=== PATIENT | female | born 1965 | race Asian ===

== ENCOUNTER 2023-12-22 14:12 | Outpatient (AMB) | payer MEDICAID, SELFPAY ==
[2023-12-22 14:22] VITALS: BP 150/74; PULSE 77; RESP 18; TEMP 36.6; O2SAT 98; BMI 25.6
--- NOTE | 2023-12-22 14:22 | PD.ORTHCLVIS ---
Vital signs 12/22/23 14:22 Height 1.5 m Height Method Stated Weight 57.663 kg Weight Measurement Method Standing Scale BMI 25.6 BP 150/74 H Blood Pressure Source Automatic Cuff Blood Pressure Location Right Upper Arm Position Sitting Respiration 18 Pulse 77 Pulse Source Monitor Temp 97.9 F Temp Source Temporal Artery Scan Pulse Oximetry (%) 98 Oxygen Delivery Method Room Air Med/Allergies Allergies & Medications Allergies No Known Allergies Allergy (Verified 12/22/23 14:22) Medication Reconciliation meloxicam 7.5 mg tablet 7.5 mg PO QDAY #20 tabs 01/15/23 [Rx Confirmed 12/22/23] ascorbate calcium (vitamin C) 500 mg tablet 500 mg PO QDAY 09/26/23 [History Confirmed 12/22/23] atorvastatin 10 mg tablet 10 mg PO QDAY 09/26/23 [History Confirmed 12/22/23] cetirizine 10 mg tablet 10 mg PO QDAY PRN 09/26/23 [History Confirmed 12/22/23] levothyroxine 25 mcg capsule 25 mcg PO QDAY 09/26/23 [History Confirmed 12/22/23] rcwqrpqn-[id number]-okcck acid 0.4 mg-lycopene 300 mcg-lutein 250 mcg tablet (Centrum Silver) 1 tab PO QDAY 09/26/23 [History Confirmed 12/22/23] pantoprazole 40 mg tablet,delayed release 40 mg PO QDAY 09/26/23 [History Confirmed 12/22/23] sertraline 25 mg tablet 25 mg PO QDAY 09/26/23 [History Confirmed 12/22/23] valsartan 80 mg tablet 80 mg PO QDAY 09/26/23 [History Confirmed 12/22/23] vitamin B12 500 mcg-folic acid 400 mcg tablet 1 tab PO QDAY 09/26/23 [History Confirmed 12/22/23] meloxicam 7.5 mg tablet 7.5 mg PO QDAY #45 tabs 10/10/23 [Rx Confirmed 12/22/23] Subjective Visit Visit for: follow up visit, knee and injections Immunization / Flu Flu Vaccine in the Last 12 Months: No Flu Vaccine Exclusion Criteria: No Exclusion Criteria History of Present Illness Chief complaint: 3 MONTH FOLLOW UP KNEE INJECTION Patient is a 58-year-old female with left knee pain has been ongoing for 7 months. She tried significant physical therapy and anti-inflammatories including meloxicam. The pain is on the medial aspect of her knee. She has an MRI which demonstrates a posterior horn medial meniscus tear. The pain is limiting her. 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 Exam Exam Patient is in no acute distress and is cooperative with the examination today. Breathing is nonlabored. Patient has a normal mood and affect. Bilateral extremities were evaluated and demonstrates sensation intact to light touch. Palpable pedal pulses are present. No significant edema is present. Bilateral hips were examined. The patient has no pain with log roll of the hips. Internal rotation to 30 degrees and external rotation to 30 degrees is painless. Negative FADIR. Right knee was examined today. The right knee is in reasonable alignment. Range of motion from 0-120 degrees. Knee is stable to varus and valgus as well as AP translation with <5mm. Patient has a negative McMurrays. There is no pain with patellofemoral compression and no crepitus noted. The knee is nontender to palpation. Left knee was examined today. The left knee is in [varus] alignment. Range of motion from [0-115] degrees. Knee is stable to varus and valgus as well as AP translation with <5mm. Patient has a [negative] McMurrays. There is [no] pain with patellofemoral compression and [no] crepitus noted. The knee is [tender] to palpation [medially]. X-rays from [facility] were reviewed by me today. This demonstrates a posterior horn medial meniscus tear. It is horizontal X-rays demonstrate complete open further ration of the medial joint space. There is nlan-bu-jtmi arthritis Assessment and Plan Problem List (1) Arthritis of knee, left: Status: Acute Plan: Patient is a 58-year-old Female with left knee pain. This been ongoing for several months. She actually has severe arthritis. We discussed nonoperative and operative options. She would like a cortisone injection today. Recommend knee cortisone injection as patient would like to proceed with conservative treatment at this time. The risks and benefits of the procedure were reviewed with the patient and patient gave verbal consent to continue with the procedure. Procedure: performed by Dr. Astudillo Using sterile technique the left knee was thoroughly prepped with alcohol, and approximately 1 cc of Kenalog 40 mg/mL and 4 cc of 1% lidocaine was injected without resistance into the medial tibial femoral joint space. The patient tolerated the procedure. (2) Acute meniscal tear of knee: Status: Acute Office Procedures GNS Level of Care Nursing/Assessment Patient Status: Established Patient Nursing Assessment/Reassesment: Medication Reconciliation, Update PMH in EMR and Vital Signs Coordination of Care: Complex Care and Chronic Disease 1-5, Education Complex Pt/Fam, Consent,records obtained, informed consent and Staff clarify orders Established Patient Charge Established Patient Point Assignment: 90 Established Patient Point Charge: EP Level 3 (80-115) Past Medical History Past Medical History Have you ever been diagnosed with any of the following: Respiratory Problems Smoking: No Smoking Exposure: No
== END 2023-12-22 14:51 | disposition home or self-care (01) ==
LOC: HODSRG 14:12
PROVIDERS: PCP Physician Assistant; Referring Provider Physician Assistant; Supervising Provider Orthopaedic Surgery Adult Reconstructive Orthopaedic Surgery; Visit Provider Orthopaedic Surgery Adult Reconstructive Orthopaedic Surgery
DX: M17.12 Unilateral primary osteoarthritis, left knee (principal); M25.562 Pain in left knee; S83.209D Unspecified tear of unspecified meniscus, current injury, unspecified knee, subsequent encounter; X58.XXXD Exposure to other specified factors, subsequent encounter
CPT/HCPCS: 20610; 99213; G0463

== ENCOUNTER 2024-01-11 08:04 | Outpatient (AMB) | payer MEDICAID, SELFPAY ==
--- NOTE | 2024-01-11 08:21 | ORTHONT_ITS ---
Med/Allergies Allergies & Medications Allergies No Known Allergies Allergy (Verified 12/22/23 14:22) Subjective Visit Visit for: follow up visit, knee and injections Immunization / Flu Flu Vaccine in the Last 12 Months: No Flu Vaccine Exclusion Criteria: No Exclusion Criteria History of Present Illness Chief complaint: 3 MONTH FOLLOW UP KNEE INJECTION Patient is a 58-year-old female with left knee pain has been ongoing for 7 months. She tried significant physical therapy and anti-inflammatories including meloxicam. The pain is on the medial aspect of her knee. She has an MRI which demonstrates a posterior horn medial meniscus tear. The pain is limiting her. 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 Exam Exam Patient is in no acute distress and is cooperative with the examination today. Breathing is nonlabored. Patient has a normal mood and affect. Bilateral extremities were evaluated and demonstrates sensation intact to light touch. Palpable pedal pulses are present. No significant edema is present. Bilateral hips were examined. The patient has no pain with log roll of the hips. Internal rotation to 30 degrees and external rotation to 30 degrees is painless. Negative FADIR. Right knee was examined today. The right knee is in reasonable alignment. Range of motion from 0-120 degrees. Knee is stable to varus and valgus as well as AP translation with <5mm. Patient has a negative McMurrays. There is no pain with patellofemoral compression and no crepitus noted. The knee is nontender to palpation. Left knee was examined today. The left knee is in [varus] alignment. Range of motion from [0-115] degrees. Knee is stable to varus and valgus as well as AP translation with <5mm. Patient has a [negative] McMurrays. There is [no] pain with patellofemoral compression and [no] crepitus noted. The knee is [tender] to palpation [medially]. [facility] from [facility] were reviewed by me today. This demonstrates a posterior horn medial meniscus tear. It is horizontal X-rays demonstrate complete open further ration of the medial joint space. There is fsku-yo-jnuo arthritis Assessment and Plan Problem List (1) Arthritis of knee, left: Status: Acute Plan: Patient is a 58-year-old Female with left knee pain. The patient is failed conservative treatment we thus discussed total knee replacement is a reasonable option. We tried physical therapy, anti-inflammatories, and injections Recommend knee cortisone injection as patient would like to proceed with conservative treatment at this time. The risks and benefits of the procedure were reviewed with the patient and patient gave verbal consent to continue with the procedure. Procedure: performed by Dr. Astudillo Using sterile technique the left knee was thoroughly prepped with alcohol, and approximately 1 cc of Kenalog 40 mg/mL and 4 cc of 1% lidocaine was injected without resistance into the medial tibial femoral joint space. The patient tolerated the procedure. (2) Acute meniscal tear of knee: Status: Acute Past Medical History Past Medical History Have you ever been diagnosed with any of the following: Respiratory Problems Smoking: No Smoking Exposure: No
[2024-01-11 08:30] VITALS: BP 166/96; PULSE 70; RESP 18; TEMP 36.5
--- NOTE | 2024-02-21 10:00 | PD.ORTHCLVIS ---
Vital signs 01/11/24 08:30 Height 1.5 m Height Method Stated Weight 128 kg Weight Measurement Method Standing Scale BP 166/96 H Blood Pressure Source Automatic Cuff Blood Pressure Location Right Upper Arm Position Sitting Respiration 18 Pulse 70 Pulse Source Monitor Temp 97.7 F Temp Source Temporal Artery Scan Med/Allergies Allergies & Medications Allergies No Known Allergies Allergy (Verified 02/06/24 14:48) Assessment and Plan Problem List (1) Arthritis of knee, left: Status: Acute (2) Acute meniscal tear of knee: Status: Acute Office Procedures GNS Level of Care Nursing/Assessment Patient Status: Established Patient Nursing Assessment/Reassesment: Medication Reconciliation, Update PMH in EMR and Vital Signs Coordination of Care: Complex Care and Chronic Disease 1-5, Education Complex Pt/Fam, Consent,records obtained, informed consent, Results/Orders obtained and Staff clarify orders Established Patient Charge Established Patient Point Assignment: 95 Established Patient Point Charge: EP Level 3 (80-115) Surgical Proc/IM SQ injection Major Surgical Procedure: Yes Questionairres Past Medical History Past Medical History Have you ever been diagnosed with any of the following: Neurological Problems Seizures: No Cardiology Problems Hypercholesterolemia: Yes Congestive Heart Failure: No Hypertension: Yes Respiratory Problems Chronic Obstructive Pulmonary Disease (COPD): No Smoking: No Smoking Exposure: No Stomache/Intestinal Problems Hepatitis: No Ulcerative Colitis: Yes Genital/Urinary Problems Renal Disease: No Reproductive Problems Previous Pregnancies: Yes Musculoskeletal Problems Arthritis: Yes Carpal Tunnel Syndrome: Yes (bilateral) Endocrine Problems Diabetes Mellitus Type 1: No Diabetes Mellitus Type 2: No Hypothyroidism: Yes Blood Problems Clotting Problems: Yes (Platelets clump) Psychologic Problems Anxiety: Yes Other Problems Hospitalization: Yes (ulcer) Shingles: No Blood Transfusions: No Blood Transfusion Reaction: No Anesthesia Reactions: No Chicken Pox: Yes Measles: Yes Mumps: Yes Cancer: No Subjective Review of Systems Review of Systems: All systems negative unless otherwise noted in HPI.
== END 2024-01-11 08:25 | disposition home or self-care (01) ==
LOC: HODSRG 08:04
PROVIDERS: PCP Physician Assistant; Referring Provider Physician Assistant; Supervising Provider Orthopaedic Surgery Adult Reconstructive Orthopaedic Surgery; Visit Provider Orthopaedic Surgery Adult Reconstructive Orthopaedic Surgery
DX: M17.12 Unilateral primary osteoarthritis, left knee (principal); M25.562 Pain in left knee; S83.209A Unspecified tear of unspecified meniscus, current injury, unspecified knee, initial encounter; X58.XXXA Exposure to other specified factors, initial encounter
CPT/HCPCS: 20610; 99213; G0463

== ENCOUNTER 2024-01-23 15:48 | Observation (INO) | payer MEDICAID, SELFPAY ==
[2024-01-19 07:37] VITALS: BMI 26.0
--- NOTE | 2024-01-19 08:16 | EKG_ITS ---
[facility] Test Date: 2024-01-19 Pat Name: TODD DOHERTY Department: Room: - Gender: Female Home Theater Specialist: SHAYLA : 1965 Requested By: Mario Gray Order Number: [id number] Reading MD: Mario Gray Measurements Intervals [place] Rate: 69 P: 40 VA: 166 QRS: 67 QRSD: 84 T: 44 QT: 391 QTc: 420 Interpretive Statements SINUS RHYTHM No previous ECG available for comparison /store/S0/[id number]/[id number].pdf
[2024-01-19 08:54] LABS: Basophils % (Auto) 1 % (0-2.5); Eosinophils # (Auto) 0.2 Thou/mm3 (0.0-0.5); Eosinophils % (Auto) 5 % (0-10); Hematocrit 41.4 % (36.0-46.0); Hemoglobin 13.7 g/dL (12.0-16.0); Immature Granulocytes % (Auto) 0 % (0-0); Lymphocytes % (Auto) 26 % (10-50); Mean Corpuscular HGB Conc 33.1 g/dl (31.0-37.0); Mean Corpuscular Hemoglobin 30.4 pg (25.0-35.0); Mean Corpuscular Volume 92 fL (80-100); Monocytes # (Auto) 0.3 Thou/mm3 (0.0-0.8); Monocytes % (Auto) 8 % (0-12); Neutrophils # (Auto) 2.4 Thou/mm3 (1.8-7.7); Neutrophils % (Auto) 61 % (37-80); Nucleated Red Blood Cell % 0 /100 WBC (0); RDW Standard Deviation 40.8 fL (36.4-46.3); White Blood Count 3.9 Thou/mm3 (3.6-11.0)
[2024-01-19 09:01] LABS: Platelet Count 36 Thou/mm3 (140-440)
[2024-01-19 09:02] LABS: Partial Thromboplastin Time 27.4 Seconds (22.0-36.0); Prothrombin Time 10.8 Seconds (9.0-12.2)
[2024-01-19 09:11] LABS: Alanine Aminotransferase 27 U/L (10-49); Albumin, Serum 4.8 gm/dL (3.5-5.0); Alkaline Phosphatase 78 U/L (46-116); Anion Gap 5 (7-16); Aspartate Amino Transferase 26 U/L (0-34); BUN/Creatinine Ratio 17 Ratio (12-20); Bilirubin,Total 1.2 mg/dL (0.3-1.2); Blood Urea Nitrogen 12 mg/dL (9-23); Calcium 9.9 mg/dL (8.3-10.6); Calcium (Corrected) 9.9 mg/dL (8.5-10.1); Chloride 107 mMol/L (98-107); Creatinine (Component) 0.7 mg/dL (0.6-1.3); Estimated Creatinine Clearance 68.2 mL/min (>60); Globulin 2.4 gm/dL (2.3-3.5); Glucose 107 mg/dL (74-106); Osmolality,Calculated 280 (275-295); Sodium 141 mMol/L (136-145); Total Protein 7.2 gm/dL (5.7-8.2); eGFR > 60 See Note
[2024-01-19 09:48] LABS: Slide Review Platelets confirmed
--- NOTE | 2024-01-19 13:47 | SUR.PREOP ---
Dr Gray informed of platelets 36 and the note from primary Dr explaining why her platelets are low.
--- NOTE | 2024-01-19 15:02 | SUR.PREOP ---
Ok to proceed with surgery, Dr Gray stated Dr Astudillo is aware of platelets.
[2024-01-22] VITALS (17 sets, daily range): BP systolic 140–164; BP diastolic 76–100; PULSE 67–79; RESP 12–18; TEMP 36.1–36.6; O2SAT 92–100; BMI 25.4
[2024-01-22] MEDS: PREGABALIN 75 MG CAPSULE PO (10:03)
[2024-01-22] MEDS: ACETAMINOPHEN 325 MG TABLET 650 MG PO (10:03)
[2024-01-22] MEDS: MELOXICAM 7.5 MG TABLET PO (10:04)
[2024-01-22] MEDS: RINGERS LACTATED 1000 ML 1,000 ML 20 ML IV (10:05)
--- NOTE | 2024-01-22 11:36 | ESOP_ITS ---
Date of Procedure 01/22/24 Pre Op Diagnosis left knee osteoarthritis Post Op Diagnosis left knee osteoarthritis Procedure left total knee replacement Findings full thickness cartilage loss and osteophytes Procedure Description Indication: The patient is a 58 year old who has a long history of left knee pain. X-rays show degenerative arthritis involving the knee. Over the past several years the patient has had increasing pain, progressive limitation in function. He has failed conservative measures including activity modification, physical therapy, injections, anti-inflammatories, and assistive devices. After a lengthy discussion of the risks and benefits, the patient presents now for total knee replacement. The nature and purpose of the total knee replacement, alternative method(s) of treatment, the material risks involved, and the possibility of complications were fully explained to the patient. The patient was told the most common risks and complications associated with a total knee replacement include, but are not limited to blood clots in the leg, fatal pulmonary embolism, dislocation of the prosthesis, intraoperative and postoperative fractures of the femur or tibia, infection, failure of the prosthesis or grafting materials, complications from anesthesia, reactions to blood transfusions, postoperative leg length inequality, instability of the knee replacement, nerve damage or injury, vascular injury, delayed wound healing, infections, other injury or even . In addition, there are risks associated with anesthesia given during this operation, temporary or permanent numbness on the skin lateral to the incision can be a complication unique to total knee surgery, and kneeling can be painful after knee replacement surgery. Also, the patient was told that after undergoing a total knee replacement there may still be pain or disability. We discussed with the patient that we will be using a robot-assisted technology. We discussed that there is a possibility of converting to manual instrumentation. The patient was informed that the success of this operation in part depends upon the mechanical devices which are going to be implanted and that these devices can fail or malfunction, and may need to be repaired or replaced and there are no guarantees as to the longevity of this device or its part and that it or its parts could fail prematurely. Finally, the patient was asked to follow completely and fully with all advice and recommended treatments, and that recovery and ultimate outcome are affected by their compliance with recommended treatment. Surgical technique: Patient was marked and consented in the pre-operative area. The patient was brought to the operating room and placed on the operating table in a supine position. Prior to positioning, a timeout procedure was performed between the surgeon, the anesthesiologist, and the nursing staff where the patient and the operative side were identified and confirmed. After adequate general anesthetic was obtained, the left lower extremity was prepped and draped in the usual sterile fashion. A weight based dose of Cefazolin were administered within 1 hour prior to incision. The robot was preregistered and calirated before the incision. The extremity was exsanguinated with an esmarch badge and tourniquet inflated to 250mmHg. A midline incision was made. A median parapatellar arthrotomy was made. The patella was subluxed laterally. A medial release was performed to expose the medial tibia. His femoral and tibial pins were placed through an intra incisional manner for both cases. Every effort was made to ensure that the distalmost aspect of the pin was hung in the second cortex. The arrays were then tightened several times to ensure that it was fixed for the remainder of the case. Both femoral and tibial checkpoints were then placed. We then went through the registration process of the bone. We then assessed the knee deformity and attempted to correct it. We also used the robot to aid in judging laxity in both extension and flexion. Final based on laxity and alignment we changed the preoperative assessment to obtain proper proper implant positioning and to correct deformity. Attention was then placed to the tibia. We made a tibial cut using the robot ensuring that both the MCL and the patella tendon were protected with retractors. We then went to the femur and made the posterior cut followed by the anterior cut and the anterior chamfer. The bone was then removed and we made a distal femur cut and a posterior chamfer cut. We verified all cuts. A trial reduction was performed with a size 1 femoral component and a size 1 keeled tibial component. The patella tracked centrally, and no lateral re tinacular release was necessary. The trial implants were removed. The arrays, pins, and checkpoints were all removed. We performed a verification that all pins were removed. The cut bone surfaces were lavaged. A size 1 left femoral component, a size 1 keeled tibial component were impacted into position. The knee was felt to be well balanced in the sagittal and coronal plane. The final 1x10 mm cruciate- substituting articular insert was impacted into the tibial tray. The knee was brought out to full extension, flexed up to 120 degrees. It was stable to varus and valgus stress and appropriately balanced in flexion and extension. The wounds were copiously irrigated following deflation of tourniquet. The medial retinaculum was reapproximated with #1 vicryl and quill. The subcutaneous tissues were closed with 0 and 2-0 interrupted Vicryl. The skin was closed with 3-0 Monofilament V loc suture. A sterile dressing was applied. The patient was transferred to a bed and brought to recovery in stable condition. The patient tolerated the procedure well. There were no intraoperative complications. Sponge and needle counts were correct times 2. As the attending surgeon, I attest I was present and performed the entire operation. Grafts/Implants Size 1 CR Femur Size 1 Tibia 10mm poly CS Anesthesia GETA and spinal Implants [place] Pathology / specimen None Pathology comment: none Estimated Blood Loss 150 Disposition same day Surgeon Benja Astudillo MD Surgical Staff Operation Date: 01/22/24 14:45 Case Staff Anesthesiologist: Randy Jj RN First Assistant: Angelique Bansal
--- NOTE | 2024-01-22 11:40 | XR_ITS ---
Examination: Knee, left , 2 views Technique: Knee AP, lateral, 2 views Date and time of exam: January 22, 2024 1202 hours INDICATIONS: Postop knee arthroplasty today FINDINGS: Moderate osteopenia Total left knee arthroplasty Satisfactory alignment No fracture IMPRESSION: Total left knee arthroplasty with satisfactory alignment
--- NOTE | 2024-01-22 12:02 | SUR.PHASEI ---
1202: Pt. AAOx4, vitals stable, breathing unlabored, no complaint of pain or nausea, dressing to left knee CDI, no active bleed noted, palpable bilateral dorsalis pedis pulses strong and regular, cap refill to bilateral feet less than 3 seconds, report received from Blane STEIN and Darion student RNA.
[2024-01-22] MEDS: fentaNYL CIT INJ 50 mCg/ML AMP 2ML 25 MCG IV ×4 (12:10→14:09)
[2024-01-22] MEDS: MORPHINE SULF INJ 10 MG/ML VIAL 3 MG IV ×2 (12:17→12:28)
--- NOTE | 2024-01-22 12:32 | SUR.PHASEII ---
1232:Report given to Tayler Adhikari RN to resume care. Pt. AAOx4, vitals stable, breathing unlabored, dressing CDI.
[2024-01-22] MEDS: CYCLObenzaPRINE 5 MG TABLET 10 MG PO (12:44)
[2024-01-22] MEDS: oxyCODONE HCL 5 MG IR TAB PO ×2 (13:04→19:29)
--- NOTE | 2024-01-22 13:17 | SUR.PHASEII ---
1317: Pt. AAOx4, vitals stable, breathing unlabored, no complaint of nausea, dressing to left knee CDI, no active bleed noted, report received from Tayler Adhikari RN.
--- NOTE | 2024-01-22 15:39 | SUR.PHASEII ---
Pt. staying the night due to her unable to lift leg, still having discomfort, and her unable to drive at night. MD Astudillo aware and approved.
[2024-01-22] MEDS: ACETAMINOPHEN IVPB 1,000 MG/100 ML VIAL 250 MG IV (15:55)
--- NOTE | 2024-01-22 16:19 | SUR.PHASEII ---
Report given to Larissa STEIN to resume care, Pt. AAOx4, vitals stable, breathing unlabored, complaint of pain 06/13, pt. states it's tolerable, dressing to left knee CDI, no active bleed noted, pt. able to wiggle bilateral toes, cap refill to bilateral toes less than 3 seconds, bilateral dorsalis pedis pulses strong and regular, pt. tolerated sips of soda well, and tolerated bites of crackers well, family made aware of pt. new room.
[2024-01-22] MEDS: ACETAMINOPHEN 500 MG TABLET 1000 MG PO (21:49)
[2024-01-23] VITALS (7 sets, daily range): BP systolic 132–157; BP diastolic 67–79; PULSE 69–87; RESP 16–18; TEMP 36.1–36.7; O2SAT 95–98
[2024-01-23] MEDS: oxyCODONE HCL 5 MG IR TAB 10 MG PO ×3 (00:04→15:42)
[2024-01-23] MEDS: ACETAMINOPHEN 500 MG TABLET 1000 MG PO ×3 (05:45→18:53)
[2024-01-23 06:34] LABS: Basophils % (Auto) 0 % (0-2.5); Eosinophils % (Auto) 0 % (0-10); Hematocrit 36.8 % (36.0-46.0); Hemoglobin 12.2 g/dL (12.0-16.0); Immature Granulocytes % (Auto) 0 % (0-0); Immature Granulocytes Auto 0.02 Thou/mm3 (0.00-0.00); Lymphocytes # (Auto) 1.2 Thou/mm3 (1.0-4.8); Lymphocytes % (Auto) 15 % (10-50); Mean Corpuscular HGB Conc 33.2 g/dl (31.0-37.0); Mean Corpuscular Hemoglobin 30.3 pg (25.0-35.0); Mean Corpuscular Volume 92 fL (80-100); Monocytes # (Auto) 0.8 Thou/mm3 (0.0-0.8); Monocytes % (Auto) 10 % (0-12); Neutrophils # (Auto) 6.1 Thou/mm3 (1.8-7.7); Neutrophils % (Auto) 74 % (37-80); Nucleated Red Blood Cell % 0 /100 WBC (0); RDW Standard Deviation 40.7 fL (36.4-46.3); Red Blood Count 4.02 Miln/mm3 (4.00-5.20); White Blood Count 8.2 Thou/mm3 (3.6-11.0)
[2024-01-23 06:35] LABS: Platelet Count 27 Thou/mm3 (140-440)
[2024-01-23 07:59] LABS: Slide Review Platelets confirmed
[2024-01-23] MEDS: PANTOPRAZOLE INJ 40 MG VIAL IV (09:20)
--- NOTE | 2024-01-23 09:30 | PC.SS ---
Patient Desiree Anne is a 58 Year old female admitted for LT Knee [id number]. Patient reports she lives at home with her ,john paul Anne who is her surrogate decision maker [phone]. She reports that prior to admission she did not utilize any source of DME. Patient reports her PCP is Bin Salcido and her pharmacy of choice is [facility] in [place]. At time of discharge patient will return home. Next of kin: Discharge plan: Home
[2024-01-23] MEDS: ASPIRIN EC 81 MG TABEC PO ×2 (09:49→21:22)
--- NOTE | 2024-01-23 09:51 | PC.NURSE ---
Dr. Astudillo been updated abouit the pt. Platelet levels of [address] Astudillo confirmed it is ok to give pt. an asprin now and pt. will be discharge home with 81 mg once a day .
[2024-01-23 10:36] LABS: Platelet Count 257 Thou/mm3 (140-440)
--- NOTE | 2024-01-23 10:42 | PC.NURSE ---
Pt. going to stay one more night to the hospital, Dr. Astudillo aware of this and per MD. pt. can resum,e levothyroxine and Valsartan now.
[2024-01-23] MEDS: VALSARTAN 80 MG TABLET PO (11:28)
[2024-01-23] MEDS: LEVOTHYROXINE SODIUM 25 MCG TABLET PO (11:28)
--- NOTE | 2024-01-23 15:41 | CHAP ---
09:30 AM Visited by spiritual care volunteer Provided prayer for Patient
[2024-01-23] MEDS: oxyCODONE HCL 5 MG IR TAB PO (21:22)
[2024-01-24] VITALS: BP 140/88; PULSE 79; RESP 17; TEMP 36.2; O2SAT 96
[2024-01-24] MEDS: ACETAMINOPHEN 500 MG TABLET 1000 MG PO ×2 (00:10→05:47)
[2024-01-24 04:00] VITALS: BP 148/83; PULSE 76; RESP 16; TEMP 36.3; O2SAT 97
[2024-01-24] MEDS: oxyCODONE HCL 5 MG IR TAB PO (05:17)
[2024-01-24] MEDS: LEVOTHYROXINE SODIUM 25 MCG TABLET PO (05:47)
[2024-01-24 08:00] VITALS: BP 153/86; PULSE 77; RESP 16; TEMP 36.3; O2SAT 97
[2024-01-24] MEDS: ASPIRIN EC 81 MG TABEC PO (08:26)
[2024-01-24] MEDS: PANTOPRAZOLE INJ 40 MG VIAL IV (08:26)
[2024-01-24 08:27] VITALS: BP 148/83; PULSE 76
[2024-01-24] MEDS: VALSARTAN 80 MG TABLET PO (08:27)
[2024-01-24] MEDS: oxyCODONE HCL 5 MG IR TAB 10 MG PO (10:22)
--- NOTE | 2024-01-24 10:51 | CHAP ---
Patient was visited by a Spiritual Care Volunteer on 01/24/2024 between 1000 and [phone] and received comfort, encouragement and/or prayer.
[2024-01-24 12:00] VITALS: BP 129/72; PULSE 86; RESP 18; TEMP 35.6; O2SAT 96
[2024-01-24 12:56] VITALS: BMI 13.0
== END 2024-01-24 13:25 | disposition home or self-care (01) ==
LOC: S3NX 15:52 → S2EX 15:53 → S3NX 15:54
PROVIDERS: Admitting Provider Orthopaedic Surgery Adult Reconstructive Orthopaedic Surgery; PCP Physician Assistant; Referring Provider Orthopaedic Surgery Adult Reconstructive Orthopaedic Surgery; Visit Provider Orthopaedic Surgery Adult Reconstructive Orthopaedic Surgery
PROC: (CPT 27447; principal; 2024-01-22 14:45)
DX: M17.12 Unilateral primary osteoarthritis, left knee (principal); Z01.810 Encounter for preprocedural cardiovascular examination; M25.762 Osteophyte, left knee
CPT/HCPCS: 27447; 20985; 36415; 73560; 80048; 80053; 85025; 85049; 85610; 85730; 87081; 93005; 97162; A4217; C1713; C1776; G0378; J0131; J0171; J0690; J1885; J2250; J2270; J2371; J2470; J2704; J2795; J3010; J3490; J7030; J7120; A4648; A4649; A9270

== ENCOUNTER 2024-02-06 14:25 | Outpatient (AMB) | payer MEDICAID, SELFPAY ==
[2024-02-06 14:47] VITALS: BP 139/84; PULSE 77; RESP 18; TEMP 36.6; O2SAT 98
--- NOTE | 2024-02-06 14:47 | PD.ORTHCLVIS ---
Vital signs 02/06/24 14:47 Weight 57.323 kg Weight Measurement Method Standing Scale BP 139/84 H Blood Pressure Source Automatic Cuff Blood Pressure Location Right Upper Arm Position Sitting Respiration 18 Pulse 77 Pulse Source Monitor Temp 97.8 F Temp Source Temporal Artery Scan Pulse Oximetry (%) 98 Oxygen Delivery Method Room Air Med/Allergies Allergies & Medications Allergies No Known Allergies Allergy (Verified 02/06/24 14:48) Medication Reconciliation meloxicam 7.5 mg tablet 7.5 mg PO QDAY #20 tabs 01/15/23 [Rx Confirmed 02/06/24] ascorbate calcium (vitamin C) 500 mg tablet 500 mg PO QDAY 09/26/23 [History Confirmed 02/06/24] atorvastatin 10 mg tablet 10 mg PO QDAY 09/26/23 [History Confirmed 02/06/24] cetirizine 10 mg tablet 10 mg PO QDAY 09/26/23 [History Confirmed 02/06/24] levothyroxine 25 mcg capsule 25 mcg PO QDAY 09/26/23 [History Confirmed 02/06/24] pantoprazole 40 mg tablet,delayed release 40 mg PO QDAY 09/26/23 [History Confirmed 02/06/24] sertraline 25 mg tablet 25 mg PO QDAY 09/26/23 [History Confirmed 02/06/24] valsartan 80 mg tablet 80 mg PO QDAY 09/26/23 [History Confirmed 02/06/24] vitamin B12 500 mcg-folic acid 400 mcg tablet 1 tab PO QDAY 09/26/23 [History Confirmed 02/06/24] multivitamin-ferrous fumarate-folic acid 18 mg-400 mcg tablet (Centrum) 1 tab PO QAM 01/19/24 [History Confirmed 02/06/24] vit C 250 mg-vit E 90 mg-zinc 40 mg-copper 1 [id number] capsule (PreserVision AREDS-2) 1 tab PO BID 01/19/24 [History Confirmed 02/06/24] acetaminophen 500 mg tablet (Acetaminophen Extra Strength) 1,000 mg (2 x 500 mg) PO Q6H PRN pain #90 tabs 01/22/24 [Rx Confirmed 02/06/24] aspirin 81 mg tablet,delayed release 81 mg PO BID #60 tabs 01/22/24 [Rx Confirmed 02/06/24] doxycycline hyclate 100 mg tablet 100 mg PO BID #14 tabs 01/22/24 [Rx Confirmed 02/06/24] gabapentin 300 mg capsule 300 mg PO .qhs #30 caps 01/22/24 [Rx Confirmed 02/06/24] oxycodone 5 mg tablet 5 mg PO Q6H PRN pain #28 tabs 01/22/24 [Rx Confirmed 02/06/24] sennosides 8.6 mg-docusate sodium 50 mg tablet (Senna-S) 1 tab-cap PO QDAY #30 tabs 01/22/24 [Rx Confirmed 02/06/24] Subjective Visit Visit for: post op #1 and knee Immunization / Flu Flu Vaccine in the Last 12 Months: Yes Flu Vaccine Exclusion Criteria: Already Received History of Present Illness Chief complaint: POST OP R TKA Patient is a 58-year-old female with left knee pain. She is doing well status post left total knee replacement. 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 Exam Exam Patient is in no acute distress and is cooperative with the examination today. Breathing is nonlabored. Patient has a normal mood and affect. Bilateral extremities were evaluated and demonstrates sensation intact to light touch. Palpable pedal pulses are present. No significant edema is present. Bilateral hips were examined. The patient has no pain with log roll of the hips. Internal rotation to 30 degrees and external rotation to 30 degrees is painless. Negative FADIR. Right knee was examined today. The right knee is in reasonable alignment. Range of motion from 0-120 degrees. Knee is stable to varus and valgus as well as AP translation with <5mm. Patient has a negative McMurrays. There is no pain with patellofemoral compression and no crepitus noted. The knee is nontender to palpation. Left knee incision is clean dry intact. Range of motion 0 to 100 degrees Assessment and Plan Problem List (1) Arthritis of knee, left: Status: Acute Plan: Patient is a 58-year-old Female with left knee pain And is status post left total knee replacement. She is doing well. We have seen her in approximately 4 to 6 weeks. She should (2) Acute meniscal tear of knee: Status: Acute Office Procedures GNS Level of Care Nursing/Assessment Patient Status: Established Patient Nursing Assessment/Reassesment: Medication Reconciliation, Update PMH in EMR and Vital Signs Coordination of Care: Complex Care and Chronic Disease 1-5, Education Complex Pt/Fam, Consent,records obtained, informed consent, 1 Ins Authorization, Lab and Imaging orders, Ref for ancillary service, Results/Orders obtained and Staff clarify orders Special Needs: Language special needs Established Patient Charge Established Patient Point Assignment: 145 Established Patient Point Charge: EP Level 4 (120-155) Past Medical History Past Medical History Have you ever been diagnosed with any of the following: Neurological Problems Seizures: No Cardiology Problems Hypercholesterolemia: Yes Congestive Heart Failure: No Hypertension: Yes Respiratory Problems Chronic Obstructive Pulmonary Disease (COPD): No Smoking: No Smoking Exposure: No Stomache/Intestinal Problems Hepatitis: No Ulcerative Colitis: Yes Genital/Urinary Problems Renal Disease: No Reproductive Problems Previous Pregnancies: Yes Musculoskeletal Problems Arthritis: Yes Carpal Tunnel Syndrome: Yes (bilateral) Endocrine Problems Diabetes Mellitus Type 1: No Diabetes Mellitus Type 2: No Hypothyroidism: Yes Blood Problems Clotting Problems: Yes (Platelets clump) Psychologic Problems Anxiety: Yes Other Problems Hospitalization: Yes (ulcer) Shingles: No Blood Transfusions: No Blood Transfusion Reaction: No Anesthesia Reactions: No Chicken Pox: Yes Measles: Yes Mumps: Yes Cancer: No
== END 2024-02-06 14:56 | disposition home or self-care (01) ==
LOC: HODSRG 14:25
PROVIDERS: PCP Physician Assistant; Referring Provider Physician Assistant; Supervising Provider Orthopaedic Surgery Adult Reconstructive Orthopaedic Surgery; Visit Provider Orthopaedic Surgery Adult Reconstructive Orthopaedic Surgery
DX: M17.12 Unilateral primary osteoarthritis, left knee (principal); Z96.652 Presence of left artificial knee joint; S83.209A Unspecified tear of unspecified meniscus, current injury, unspecified knee, initial encounter; X58.XXXA Exposure to other specified factors, initial encounter; I10 Essential (primary) hypertension; E78.00 Pure hypercholesterolemia, unspecified
CPT/HCPCS: 99214; G0463

== ENCOUNTER 2024-02-23 11:30 | Outpatient (RCR) | payer MEDICAID, SELFPAY ==
--- NOTE | 2024-02-16 15:29 | PTNOTE_ITS ---
PT OP Initial Eval Patient Information Visit Reasons: Left Knee TKA Medical Diagnosis: Left Knee OA Treatment Dx #1: Left Knee Pain Treatment Dx #2: Left Knee Mobility Deficits Start of Care: 02/16/24 Date of Onset: 01/22/24 Smoking Status Smoking Status: Never smoker Initial Assessment Subjective: Pt is a 58 y/o female s/p left TKA 01/22/24 due to knee OA. Pt still has pain (4/10) with activities. Pt has limitation with standing, walking, chores, self care, cooking, balance, and performing recreational activities. Objective: Left Knee AROM: -20 deg to 84 deg Left Knee MMTs: grossly 3/5 Left Hip MMTs: grossly 3-/5 SLS: unable Assessment: Pt demonstrate left knee mobility and strength deficits s/p TKA leading to difficulty with ADLs. Pt will benefit from physical therapy to increase ROM, strength, and work on ambulation. Short Term and [facility] Goals 1) Decrease knee extension lag to -8 deg in 12 wks to have a normal gait pattern 2) Increase knee flexion AROM to 115 deg in 12 wks to be able to perform squatting activities 3) Increase knee MMTs grossly to 4/5 in 12 wks to be able to perform chores 4) Increase hip MMTs grossly to 4-/5 in 12 wks to be able to return back to work 5) Indep with HEP Treatment Plan 1) Manual Therapy 2) Therapeutic Activities 3) Therapeutic Exercises 4) Modalities (ice, heat) 5) Balance Training 6) Gait Training Frequency and Duration: 2 x wk for 12 wks Certification Dates: 02/16/24 to 05/16/24 Procedure Charges OP PT Eval Mod Complex 30 minutes: Yes
--- NOTE | 2024-02-20 15:07 | PT.ODAYNRPT ---
PT Outpatient Daily Note OP Daily Note Outpatient Physical Therapy Treatment Date: 02/20/24 Visit Reasons: Left Knee TKA Subjective: Pt c/o stiff and painful knee. Objective: Please see flow sheet for ther ex list. Assessment: Performed LLPS into extension, pt instructed and educated to perform for HEP. Plan: Continue with pOC. Length of Time (minutes) of Treatment: 30 Minutes Procedure Charges Therapeutic Exercise 30 minutes: Yes
--- NOTE | 2024-02-23 14:00 | PT.ODAYNRPT ---
PT Outpatient Daily Note OP Daily Note Outpatient Physical Therapy Treatment Date: 02/23/24 Visit Reasons: Left Knee TKA Subjective: Pt c/o L knee pain and stiffness. Objective: Please see flow sheet for ther ex list. Assessment: Pt guared during PROM and heel prop exercise. Pt encouraged to continue with stretches for L knee at home to work towards reaching PT goals. Plan: Continue with pOC. Length of Time (minutes) of Treatment: 30 Minutes Procedure Charges Therapeutic Exercise 30 minutes: Yes
== END 2024-03-05 23:59 | disposition home or self-care (01) ==
LOC: CPTX 11:30
PROVIDERS: PCP Physician Assistant; Referring Provider Orthopaedic Surgery Adult Reconstructive Orthopaedic Surgery; Visit Provider Orthopaedic Surgery Adult Reconstructive Orthopaedic Surgery
DX: M25.562 Pain in left knee (principal); R26.2 Difficulty in walking, not elsewhere classified; R26.89 Other abnormalities of gait and mobility; Z96.652 Presence of left artificial knee joint
CPT/HCPCS: 97110; 97162

== ENCOUNTER → 2024-02-26 | Outpatient (CLI) | payer MEDICAID, SELFPAY ==
--- NOTE | 2024-02-26 11:37 | XR_ITS ---
Examination: Left knee 4 views TECHNIQUE: Standing AP oblique lateral axial left knee 4 views Exam date and time: February 26, 2024 1204 hours INDICATIONS: Status post knee arthroplasty January 22, 2024 FINDINGS: Moderate osteopenia Total left knee arthroplasty. No fracture Satisfactory alignment No patellar dislocation IMPRESSION: Total left knee arthroplasty with satisfactory alignment
== END | disposition home or self-care (01) ==
PROVIDERS: PCP Physician Assistant; Referring Provider Orthopaedic Surgery Adult Reconstructive Orthopaedic Surgery; Visit Provider Orthopaedic Surgery Adult Reconstructive Orthopaedic Surgery
DX: M17.12 Unilateral primary osteoarthritis, left knee (principal); Z96.652 Presence of left artificial knee joint
CPT/HCPCS: 73564

== ENCOUNTER 2024-03-05 14:07 | Outpatient (AMB) | payer MEDICAID, SELFPAY ==
--- NOTE | 2024-03-05 14:21 | PD.ORTHCLVIS ---
Vital signs 03/05/24 14:22 Height 1.5 m Height Method Stated Weight 57.351 kg Weight Measurement Method Standing Scale BMI 25.4 BP 131/83 H Blood Pressure Source Automatic Cuff Blood Pressure Location Left Upper Arm Position Sitting Respiration 18 Pulse 83 Pulse Source Monitor Temp 97.9 F Temp Source Temporal Artery Scan Pulse Oximetry (%) 98 Oxygen Delivery Method Room Air Med/Allergies Allergies & Medications Allergies No Known Allergies Allergy (Verified 02/06/24 14:48) Medication Reconciliation meloxicam 7.5 mg tablet 7.5 mg PO QDAY #20 tabs 01/15/23 [Rx Confirmed 03/05/24] ascorbate calcium (vitamin C) 500 mg tablet 500 mg PO QDAY 09/26/23 [History Confirmed 03/05/24] atorvastatin 10 mg tablet 10 mg PO QDAY 09/26/23 [History Confirmed 03/05/24] cetirizine 10 mg tablet 10 mg PO QDAY 09/26/23 [History Confirmed 03/05/24] levothyroxine 25 mcg capsule 25 mcg PO QDAY 09/26/23 [History Confirmed 03/05/24] pantoprazole 40 mg tablet,delayed release 40 mg PO QDAY 09/26/23 [History Confirmed 03/05/24] sertraline 25 mg tablet 25 mg PO QDAY 09/26/23 [History Confirmed 03/05/24] valsartan 80 mg tablet 80 mg PO QDAY 09/26/23 [History Confirmed 03/05/24] vitamin B12 500 mcg-folic acid 400 mcg tablet 1 tab PO QDAY 09/26/23 [History Confirmed 03/05/24] multivitamin-ferrous fumarate-folic acid 18 mg-400 mcg tablet (Centrum) 1 tab PO QAM 01/19/24 [History Confirmed 03/05/24] vit C 250 mg-vit E 90 mg-zinc 40 mg-copper 1 [id number] capsule (PreserVision AREDS-2) 1 tab PO BID 01/19/24 [History Confirmed 03/05/24] acetaminophen 500 mg tablet (Acetaminophen Extra Strength) 1,000 mg (2 x 500 mg) PO Q6H PRN pain #90 tabs 01/22/24 [Rx Confirmed 03/05/24] aspirin 81 mg tablet,delayed release 81 mg PO BID #60 tabs 01/22/24 [Rx Confirmed 03/05/24] doxycycline hyclate 100 mg tablet 100 mg PO BID #14 tabs 01/22/24 [Rx Confirmed 03/05/24] gabapentin 300 mg capsule 300 mg PO .qhs #30 caps 01/22/24 [Rx Confirmed 03/05/24] oxycodone 5 mg tablet 5 mg PO Q6H PRN pain #28 tabs 01/22/24 [Rx Confirmed 03/05/24] sennosides 8.6 mg-docusate sodium 50 mg tablet (Senna-S) 1 tab-cap PO QDAY #30 tabs 01/22/24 [Rx Confirmed 03/05/24] Exam Exam Patient is in no acute distress and is cooperative with the examination today. Breathing is nonlabored. Patient has a normal mood and affect. Bilateral extremities were evaluated and demonstrates sensation intact to light touch. Palpable pedal pulses are present. No significant edema is present. Bilateral hips were examined. The patient has no pain with log roll of the hips. Internal rotation to 30 degrees and external rotation to 30 degrees is painless. Negative FADIR. Right knee was examined today. The right knee is in reasonable alignment. Range of motion from 0-120 degrees. Knee is stable to varus and valgus as well as AP translation with <5mm. Patient has a negative McMurrays. There is no pain with patellofemoral compression and no crepitus noted. The knee is nontender to palpation. Left knee incision is clean dry intact. Range of motion 0 to 100 degrees Assessment and Plan Problem List (1) Arthritis of knee, left: Status: Acute Plan: Patient is a 58-year-old Female with left knee pain And is status post left total knee replacement. She is doing well. We will see her in approximately 6 weeks. She is doing well and to continue with therapy (2) Acute meniscal tear of knee: Status: Acute Office Procedures GNS Level of Care Nursing/Assessment Patient Status: Established Patient Nursing Assessment/Reassesment: Medication Reconciliation, Update PMH in EMR and Vital Signs Coordination of Care: Complex Care and Chronic Disease 1-5, Education Complex Pt/Fam, Consent,records obtained, informed consent, 1 Ins Authorization, Results/Orders obtained and Staff clarify orders Established Patient Charge Established Patient Point Assignment: 110 Established Patient Point Charge: EP Level 3 (80-115) MA Intake Visit Data Collection New Patient or Established: Established Patient (seen at [facility] within 3 years) Reason for Visit:: F/U Seen by Clinical Staff ONLY (RN/MA): No Employee Representative Required: No PCP or OBGYN visit in last 3 months: Yes Hx Now: No Do You Feel Safe at Home: Yes Authorities Contacted: N/A Questionairres Past Medical History Past Medical History Have you ever been diagnosed with any of the following: Neurological Problems Seizures: No Cardiology Problems Hypercholesterolemia: Yes Congestive Heart Failure: No Hypertension: Yes Respiratory Problems Chronic Obstructive Pulmonary Disease (COPD): No Smoking: No Smoking Exposure: No Stomache/Intestinal Problems Hepatitis: No Ulcerative Colitis: Yes Genital/Urinary Problems Renal Disease: No Reproductive Problems Previous Pregnancies: Yes Musculoskeletal Problems Arthritis: Yes Carpal Tunnel Syndrome: Yes (bilateral) Endocrine Problems Diabetes Mellitus Type 1: No Diabetes Mellitus Type 2: No Hypothyroidism: Yes Blood Problems Clotting Problems: Yes (Platelets clump) Psychologic Problems Anxiety: Yes Other Problems Hospitalization: Yes (ulcer) Shingles: No Blood Transfusions: No Blood Transfusion Reaction: No Anesthesia Reactions: No Chicken Pox: Yes Measles: Yes Mumps: Yes Cancer: No Subjective Visit Visit for: follow up visit Immunization / Flu Flu Vaccine in the Last 12 Months: No Flu Vaccine Exclusion Criteria: No Exclusion Criteria History of Present Illness Chief complaint: Patient is doing well 6-week status post total knee replacement EN is 6 weeks out from her total knee replacement is doing well. She continues to work with outpatient physical therapy. She reports the pain continues to improve Pain Pain level (0-10): 2 Pain duration: COMES AND GOES Pain location: inside (medial) Pain quality: aching Pain timing: increases with activity Associated signs & symptoms: none Ambulatory data Ambulatory device: cane Treatments Improvement with previous injections: No Improvement with PT: No Improvement with NSAIDS: no Review of Systems Review of Systems: All systems negative unless otherwise noted in HPI.
[2024-03-05 14:22] VITALS: BP 131/83; PULSE 83; RESP 18; TEMP 36.6; O2SAT 98; BMI 25.4
== END 2024-03-05 14:32 | disposition home or self-care (01) ==
PROVIDERS: PCP Physician Assistant; Referring Provider Physician Assistant; Supervising Provider Orthopaedic Surgery Adult Reconstructive Orthopaedic Surgery; Visit Provider Orthopaedic Surgery Adult Reconstructive Orthopaedic Surgery
DX: M17.12 Unilateral primary osteoarthritis, left knee (principal); Z96.652 Presence of left artificial knee joint; S83.209D Unspecified tear of unspecified meniscus, current injury, unspecified knee, subsequent encounter; X58.XXXD Exposure to other specified factors, subsequent encounter; I10 Essential (primary) hypertension; E78.00 Pure hypercholesterolemia, unspecified
CPT/HCPCS: 99213; G0463

== ENCOUNTER 2024-04-04 13:30 | Outpatient (RCR) | payer MEDICAID, SELFPAY ==
--- NOTE | 2024-03-07 13:57 | PT.ODAYNRPT ---
PT Outpatient Daily Note OP Daily Note Outpatient Physical Therapy Treatment Date: 03/07/24 Visit Reasons: Left knee Subjective: Pt reports L knee is doing ok, feels progress is slow. Objective: Please see flow sheet for ther ex list. Assessment: Pt instructed on prone knee flexion exercise and educated and encouraged to perform for HEP. Ptr able to relax during PROm allowing for increase range. Plan: Continue with POC. Length of Time (minutes) of Treatment: 30 Minutes Procedure Charges Therapeutic Exercise 30 minutes: Yes
--- NOTE | 2024-03-11 13:55 | PT.ODAYNRPT ---
PT Outpatient Daily Note OP Daily Note Outpatient Physical Therapy Treatment Date: 03/11/24 Visit Reasons: Left knee Subjective: Pt's knee feels stiff but is feeling better. Pt mentioned surgeon wants her to return back to work next month. 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 Objective: left knee AROM: 110/118 deg Assessment: improved knee flexion AROM post stretching. Pt is progressing with closed chain exercises, however, still demonstrate antalgic gait. Plan: Continue with PT Length of Time (minutes) of Treatment: 30 Minutes Procedure Charges Therapeutic Exercise 30 minutes: Yes
--- NOTE | 2024-03-14 14:21 | PT.ODAYNRPT ---
PT Outpatient Daily Note OP Daily Note Outpatient Physical Therapy Treatment Date: 03/14/24 Visit Reasons: Left knee Subjective: Pt's knee is better, however, still notice stiffness and difficulty with prolonged walking. Objective: Please see flow chart for list of ther ex performed Assessment: Pt continue to ambulate with antalgic gait due to knee pain and decrease weightbearing in stance. worked on loading the knee more today with TG squat and closed chain exercises Plan: Continue with PT Length of Time (minutes) of Treatment: 30 Minutes Procedure Charges Therapeutic Exercise 30 minutes: Yes
--- NOTE | 2024-03-18 14:29 | PT.ODAYNRPT ---
PT Outpatient Daily Note OP Daily Note Outpatient Physical Therapy Treatment Date: 03/18/24 Visit Reasons: Left knee Subjective: Pt's knee is better. Pt notice stiffness but walking is getting easier. Objective: Please see flow chart for list of ther ex perfromed Assessment: progressing with knee flexion and reports of less pain with knee flexion stretching indicating improved flexibility with rectus femoris Plan: Continue with PT Length of Time (minutes) of Treatment: 30 Minutes Procedure Charges Therapeutic Exercise 30 minutes: Yes
--- NOTE | 2024-03-21 13:58 | PT.ODAYNRPT ---
PT Outpatient Daily Note OP Daily Note Outpatient Physical Therapy Treatment Date: 03/21/24 Visit Reasons: Left knee Subjective: Pt reports L knee is doing better but still not able to bend it as far as she would like. Objective: Please see flow sheet for ther ex list. Assessment: Progressing interventions to work on functional strength and static and dynamic balance. Plan: Continue with POC. Length of Time (minutes) of Treatment: 30 Minutes Procedure Charges Therapeutic Exercise 30 minutes: Yes
--- NOTE | 2024-03-25 14:12 | PT.ODAYNRPT ---
PT Outpatient Daily Note OP Daily Note Outpatient Physical Therapy Treatment Date: 03/25/24 Visit Reasons: Left knee Subjective: Pt reports knee is doing better, just has to retrain her brain so she can walk with her knee more straight. Objective: Please see flow sheet for ther ex list. Assessment: Working on quad strength and gait training to normalize gait and improve knee extension during heel strike. Plan: Continue with POC. Length of Time (minutes) of Treatment: 30 Minutes Procedure Charges Therapeutic Exercise 30 minutes: Yes
--- NOTE | 2024-03-28 14:02 | PTNOTE_ITS ---
PT Outpatient Daily Note OP Daily Note Outpatient Physical Therapy Treatment Date: 03/28/24 Visit Reasons: Left knee Subjective: Pt reports L knee is doing ok, still does not feel like flexibility and strength is where she would like. Objective: Please see flow sheet for ther ex list. 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 Plan: Continue with POC. Length of Time (minutes) of Treatment: 30 Minutes Procedure Charges Therapeutic Exercise 30 minutes: Yes
--- NOTE | 2024-04-01 14:17 | PT.ODAYNRPT ---
PT Outpatient Daily Note OP Daily Note Outpatient Physical Therapy Treatment Date: 04/01/24 Visit Reasons: Left knee Subjective: Pt notice her knee clicking lately. Pt further report of more stiffness than usual today Objective: Please see flow chart for list of ther ex peformed Assessment: attempted 6 step up unable to complete without pulling self with hands. Pt modified back to 4 step which she was able to complete step up exercise with better form and pushing up with left knee. Plan: Continue with PT Length of Time (minutes) of Treatment: 30 Minutes Procedure Charges Therapeutic Exercise 30 minutes: Yes
--- NOTE | 2024-04-04 14:41 | PTNOTE_ITS ---
PT Outpatient Daily Note OP Daily Note Outpatient Physical Therapy Treatment Date: 04/04/24 Visit Reasons: Left knee Subjective: Pt reports L knee is progressing but has been having pain on the lateral side of knee. Objective: Please see flow sheet for ther ex list. Assessment: Pt instructed on step up exercise, performs with single [employer] due to poor quad recruitment to push off with L LE. Plan: Continue working on strengthening and knee ROM. Length of Time (minutes) of Treatment: 30 Minutes Procedure Charges Therapeutic Exercise 30 minutes: Yes
== END 2024-04-05 23:59 | disposition home or self-care (01) ==
LOC: CPTX 13:30
PROVIDERS: PCP Orthopaedic Surgery Adult Reconstructive Orthopaedic Surgery; Referring Provider Orthopaedic Surgery Adult Reconstructive Orthopaedic Surgery; Visit Provider Orthopaedic Surgery Adult Reconstructive Orthopaedic Surgery
DX: M25.562 Pain in left knee (principal); R26.2 Difficulty in walking, not elsewhere classified; R26.89 Other abnormalities of gait and mobility; M17.12 Unilateral primary osteoarthritis, left knee; Z96.652 Presence of left artificial knee joint
CPT/HCPCS: 97110

== ENCOUNTER 2024-04-16 10:16 | Outpatient (AMB) | payer MEDICAID, SELFPAY ==
--- NOTE | 2024-04-16 10:39 | ORTHONT_ITS ---
Vital signs 04/16/24 10:48 Height 1.5 m Height Method Stated Weight 59.506 kg Weight Measurement Method Standing Scale BMI 26.4 BP 136/77 H Blood Pressure Source Automatic Cuff Blood Pressure Location Right Upper Arm Position Sitting Respiration 18 Pulse 89 Pulse Source Monitor Temp 97.1 F Temp Source Temporal Artery Scan Pulse Oximetry (%) 98 Oxygen Delivery Method Room Air Med/Allergies Allergies & Medications Allergies No Known Allergies Allergy (Verified 04/16/24 10:49) Medication Reconciliation meloxicam 7.5 mg tablet 7.5 mg PO QDAY #20 tabs 01/15/23 [Rx Confirmed 04/16/24] ascorbate calcium (vitamin C) 500 mg tablet 500 mg PO QDAY 09/26/23 [History Confirmed 04/16/24] atorvastatin 10 mg tablet 10 mg PO QDAY 09/26/23 [History Confirmed 04/16/24] cetirizine 10 mg tablet 10 mg PO QDAY 09/26/23 [History Confirmed 04/16/24] levothyroxine 25 mcg capsule 25 mcg PO QDAY 09/26/23 [History Confirmed 04/16/24] pantoprazole 40 mg tablet,delayed release 40 mg PO QDAY 09/26/23 [History Confirmed 04/16/24] sertraline 25 mg tablet 25 mg PO QDAY 09/26/23 [History Confirmed 04/16/24] valsartan 80 mg tablet 80 mg PO QDAY 09/26/23 [History Confirmed 04/16/24] vitamin B12 500 mcg-folic acid 400 mcg tablet 1 tab PO QDAY 09/26/23 [History Confirmed 04/16/24] multivitamin-ferrous fumarate-folic acid 18 mg-400 mcg tablet (Centrum) 1 tab PO QAM 01/19/24 [History Confirmed 04/16/24] vit C 250 mg-vit E 90 mg-zinc 40 mg-copper 1 lb-ortsbp-fempdg capsule (PreserVision AREDS-2) 1 tab PO BID 01/19/24 [History Confirmed 04/16/24] acetaminophen 500 mg tablet (Acetaminophen Extra Strength) 1,000 mg (2 x 500 mg) PO Q6H PRN pain #90 tabs 01/22/24 [Rx Confirmed 04/16/24] aspirin 81 mg tablet,delayed release 81 mg PO BID #60 tabs 01/22/24 [Rx Confirmed 04/16/24] doxycycline hyclate 100 mg tablet 100 mg PO BID #14 tabs 01/22/24 [Rx Confirmed 04/16/24] gabapentin 300 mg capsule 300 mg PO .qhs #30 caps 01/22/24 [Rx Confirmed 04/16/24] oxycodone 5 mg tablet 5 mg PO Q6H PRN pain #28 tabs 01/22/24 [Rx Confirmed 04/16/24] sennosides 8.6 mg-docusate sodium 50 mg tablet (Senna-S) 1 tab-cap PO QDAY #30 tabs 01/22/24 [Rx Confirmed 04/16/24] Exam Exam Patient is in no acute distress and is cooperative with the examination today. Breathing is nonlabored. Patient has a normal mood and affect. Bilateral extremities were evaluated and demonstrates sensation intact to light touch. Palpable pedal pulses are present. No significant edema is present. Bilateral hips were examined. The patient has no pain with log roll of the hips. Internal rotation to 30 degrees and external rotation to 30 degrees is painless. Negative FADIR. Right knee was examined today. The right knee is in reasonable alignment. Range of motion from 0-120 degrees. Knee is stable to varus and valgus as well as AP translation with <5mm. Patient has a negative McMurrays. There is no pain with patellofemoral compression and no crepitus noted. The knee is nontender to palpation. Left knee incision is clean dry intact. Range of motion 0 to 100 degrees Assessment and Plan Problem List (1) Arthritis of knee, left: Status: Acute Plan: Patient is a 58-year-old Female with left knee pain And is status post left total knee replacement. She is doing well. We will See her back in approximately 4-6 months. 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 (2) Acute meniscal tear of knee: Status: Acute Office Procedures GNS Level of Care Nursing/Assessment Patient Status: Established Patient Nursing Assessment/Reassesment: Medication Reconciliation, Update PMH in EMR and Vital Signs Coordination of Care: Complex Care and Chronic Disease 1-5, Education Complex Pt/Fam, Consent,records obtained, informed consent, Results/Orders obtained and Staff clarify orders Established Patient Charge Established Patient Point Assignment: 95 Established Patient Point Charge: EP Level 3 (80-115) MA Intake Visit Data Collection New Patient or Established: Established Patient (seen at [facility] within 3 years) Reason for Visit:: FOLLOW UP Seen by Clinical Staff ONLY (RN/MA): No Verbal consent obtained for Telemed visit?: No Deck Specialist Required: No PCP or OBGYN visit in last 3 months: Yes Hx Now: No Do You Feel Safe at Home: Yes Authorities Contacted: N/A Questionairres Past Medical History Past Medical History Have you ever been diagnosed with any of the following: Neurological Problems Seizures: No Cardiology Problems Hypercholesterolemia: Yes Congestive Heart Failure: No Hypertension: Yes Respiratory Problems Chronic Obstructive Pulmonary Disease (COPD): No Smoking: No Smoking Exposure: No Stomache/Intestinal Problems Hepatitis: No Ulcerative Colitis: Yes Genital/Urinary Problems Renal Disease: No Reproductive Problems Previous Pregnancies: Yes Musculoskeletal Problems Arthritis: Yes Carpal Tunnel Syndrome: Yes (bilateral) Endocrine Problems Diabetes Mellitus Type 1: No Diabetes Mellitus Type 2: No Hypothyroidism: Yes Blood Problems Clotting Problems: Yes (Platelets clump) Psychologic Problems Anxiety: Yes Other Problems Hospitalization: Yes (ulcer) Shingles: No Blood Transfusions: No Blood Transfusion Reaction: No Anesthesia Reactions: No Chicken Pox: Yes Measles: Yes Mumps: Yes Cancer: No Subjective Visit Visit for: follow up visit Immunization / Flu Flu Vaccine in the Last 12 Months: No Flu Vaccine Exclusion Criteria: No Exclusion Criteria History of Present Illness Chief complaint: Patient is doing well 6-week status post total knee replacement EN is 12 weeks out from her total knee replacement is doing well. She continues to work with outpatient physical therapy. She reports the pain continues to improve Personal History Occupation: DISABLED Pain Pain level (0-10): 2 Pain duration: COMES AND GOES Pain location: inside (medial) Pain quality: aching Pain timing: increases with activity Associated signs & symptoms: none Ambulatory data Ambulatory device: cane Treatments Improvement with previous injections: No Improvement with PT: No Improvement with NSAIDS: no Review of Systems Review of Systems: All systems negative unless otherwise noted in HPI.
[2024-04-16 10:48] VITALS: BP 136/77; PULSE 89; RESP 18; TEMP 36.2; O2SAT 98; BMI 26.4
== END 2024-04-16 10:45 | disposition home or self-care (01) ==
LOC: HODSRG 10:16
PROVIDERS: PCP Physician Assistant; Referring Provider Physician Assistant; Supervising Provider Orthopaedic Surgery Adult Reconstructive Orthopaedic Surgery; Visit Provider Orthopaedic Surgery Adult Reconstructive Orthopaedic Surgery
DX: M17.12 Unilateral primary osteoarthritis, left knee (principal); Z96.652 Presence of left artificial knee joint; M25.562 Pain in left knee; S83.209D Unspecified tear of unspecified meniscus, current injury, unspecified knee, subsequent encounter; X58.XXXD Exposure to other specified factors, subsequent encounter; I10 Essential (primary) hypertension; E78.00 Pure hypercholesterolemia, unspecified
CPT/HCPCS: 99213; G0463

== ENCOUNTER 2024-04-29 14:00 | Outpatient (RCR) | payer MEDICAID, SELFPAY ==
--- NOTE | 2024-04-08 14:35 | PT.ODS1RPT ---
PT OP Progress/Discharge Note Date of Service: 04/08/24 Progress Note/DC Note Progress Note/Discharge Note: Progress Note Patient Information Visit Reasons: Left knee Medical Diagnosis: Left Knee OA Treatment Dx #1: Left Knee Pain Treatment Dx #2: Left Knee Weakness Service Continue Service or Discharge: Continue Service Certification Date Certification Dates: 04/08/24 to 07/06/24 Status Subjective: Pt's knee is better, however, still notice some pain (5/10) with activities. Pt has been able to stand, walk, and perform light ADLs with less limitation. Pt still has limitation with uneven surfaces, balance, deep squatting, and performing recreational activities. Objective: Left Knee AROM: -6 deg to 120 deg Left Knee MMTs: grossly 4-/5 Left Hip MMTs: grossly 3+/5 SLS: 5 sec Assessment: Pt progressing with knee AROM and strength allowing her to resume ADLs, chores, and ambulation with less limitation. Pt has not met set goals and will continue to benefit from physical therapy. Plan: Continue with PT/POC and add 8 sessions (2 x wk for 4 wks) Work on Balance and Strengthening Exercises Procedure Charges Therapeutic Exercise 30 minutes: Yes
--- NOTE | 2024-04-29 14:49 | PT.ODAYNRPT ---
PT Outpatient Daily Note OP Daily Note Outpatient Physical Therapy Treatment Date: 04/29/24 Visit Reasons: Left knee Subjective: Pt's knee is getting better. Pt was extended and will return back to work June 04 Objective: Please see flow chart for list of ther ex performed Assessment: progressing with closed chain and balance exercises with minimal pain reported Plan: Continue with PT Length of Time (minutes) of Treatment: 30 Minutes Procedure Charges Therapeutic Exercise 30 minutes: Yes
== END 2024-05-03 23:59 | disposition home or self-care (01) ==
LOC: CPTX 14:00
PROVIDERS: PCP Orthopaedic Surgery Adult Reconstructive Orthopaedic Surgery; Referring Provider Orthopaedic Surgery Adult Reconstructive Orthopaedic Surgery; Visit Provider Orthopaedic Surgery Adult Reconstructive Orthopaedic Surgery
DX: M25.562 Pain in left knee (principal); R26.89 Other abnormalities of gait and mobility; R26.2 Difficulty in walking, not elsewhere classified; R53.1 Weakness; M17.12 Unilateral primary osteoarthritis, left knee; Z96.652 Presence of left artificial knee joint
CPT/HCPCS: 97110

== ENCOUNTER 2024-05-16 13:00 | Outpatient (RCR) | payer MEDICAID, SELFPAY ==
--- NOTE | 2024-05-07 13:55 | PT.ODAYNRPT ---
PT Outpatient Daily Note OP Daily Note Outpatient Physical Therapy Treatment Date: 05/07/24 Visit Reasons: Left knee Subjective: Pt's knee is stiff this afternoon. Pt feels a little ache due to the stiffness Objective: Please see flow chart for list of ther ex performed Assessment: cues to correct wall squat form to hip hinge with knee flexion up to 45 deg. Pt performed correctly after correction. Plan: Continue with PT Length of Time (minutes) of Treatment: 30 Minutes Procedure Charges Therapeutic Exercise 30 minutes: Yes
--- NOTE | 2024-05-09 14:08 | PT.ODAYNRPT ---
PT Outpatient Daily Note OP Daily Note Outpatient Physical Therapy Treatment Date: 05/09/24 Visit Reasons: Left knee Subjective: Pt reports L knee is progressing, notices strength is coming along. Objective: Please see flow sheet for ther ex list. 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 Plan: Continue with POC. Length of Time (minutes) of Treatment: 30 Minutes Procedure Charges Therapeutic Exercise 30 minutes: Yes
--- NOTE | 2024-05-13 14:08 | PT.ODAYNRPT ---
PT Outpatient Daily Note OP Daily Note Outpatient Physical Therapy Treatment Date: 05/13/24 Visit Reasons: Left knee Subjective: Pt's knee is better. Pt feels like she's almost ready to work. Objective: Please see flow chart for list of ther ex performed Assessment: tolerate exercises with minimal pain; slight difficulty with squatting due to knee pain Plan: Conitnue with PT Length of Time (minutes) of Treatment: 30 Minutes Procedure Charges Therapeutic Exercise 30 minutes: Yes
--- NOTE | 2024-05-16 13:45 | PT.ODAYNRPT ---
PT Outpatient Daily Note OP Daily Note Outpatient Physical Therapy Treatment Date: 05/16/24 Visit Reasons: Left knee Subjective: Pt reports L knee has progressed. Objective: Please see flow sheet for ther ex list. Assessment: Continue with working on balance and strengthening to work toward pt returning to perform job duties. Plan: Continue with poC. waiting on signature for POC. Length of Time (minutes) of Treatment: 30 Minutes Procedure Charges Therapeutic Exercise 30 minutes: Yes
--- NOTE | 2024-06-18 10:18 | PT.ODS1RPT ---
PT OP Progress/Discharge Note Date of Service: 06/18/24 Progress Note/DC Note Progress Note/Discharge Note: DC Note Patient Information Visit Reasons: Left knee Service Discharge Date: 06/18/24 Status Assessment: Pt has been seen for 18 visits (eval + 17 visits). Pt last treated on 05/16/24 and has not return to therapy. Pt has been contact regarding follow up appts without success. At this time Pt will be d/c from care due to non-compliance per attendance policy. Pt did not meet set goals in therapy; thank you for your referrals.
== END 2024-06-03 23:59 | disposition home or self-care (01) ==
LOC: CPTX 13:00
PROVIDERS: PCP Orthopaedic Surgery Adult Reconstructive Orthopaedic Surgery; Referring Provider Orthopaedic Surgery Adult Reconstructive Orthopaedic Surgery; Visit Provider Orthopaedic Surgery Adult Reconstructive Orthopaedic Surgery
DX: M25.562 Pain in left knee (principal); R26.2 Difficulty in walking, not elsewhere classified; R26.89 Other abnormalities of gait and mobility; Z96.652 Presence of left artificial knee joint
CPT/HCPCS: 97110

== ENCOUNTER → 2024-08-29 | Outpatient (CLI) | payer MEDICAID, SELFPAY ==
--- NOTE | 2024-08-29 15:00 | XR_ITS ---
Examination: Screening digital mammography, bilateral Computer aided detection 3-D breast Tomosynthesis, bilateral Date and time of exam: August 29, 2024 at 1446 hours Comparison August 10, 2015 Indication: Screening Technique: Nonmagnified MLO, CC views of the breasts to been obtained, reconstructed from 3-D Tomosynthesis images. R2 computer aided detection program utilized for evaluation of suspicious masses and/or abnormal calcifications. 3-D Tomosynthesis images obtained. Findings: Scattered areas of fibroglandular density. Benign calcifications. No interval suspicious masses Impression: BI-RADS category II: Benign Findings. Recommend 1 year follow-up mammogram.
== END | disposition home or self-care (01) ==
LOC: CDIM 14:34
PROVIDERS: Referring Provider Nurse Practitioner Women's Health; Visit Provider Nurse Practitioner Women's Health
DX: Z12.31 Encounter for screening mammogram for malignant neoplasm of breast (principal); R92.323 Mammographic fibroglandular density, bilateral breasts; R92.1 Mammographic calcification found on diagnostic imaging of breast
CPT/HCPCS: 77063; 77067

== ENCOUNTER → 2024-10-08 | Outpatient (CLI) | payer MEDICAID, SELFPAY ==
--- NOTE | 2024-10-08 14:52 | XR_ITS ---
Examination: Bilateral knees 2 views Right lateral knee left lateral knee 2 views Bilateral axial knees single view INDICATIONS: Left knee surgery 6 months ago, popping in the left knee right knee pain 2 years. TECHNIQUE: Bilateral AP knees standing single view, bilateral PA knees standing single view flexion Right lateral knee left lateral knee 2 views Bilateral axial knees single view total 5 views Date and time: October 08, 2024 1512 hours FINDINGS: Moderate narrowing medial joint space right knee Mild osteoarthritis right patellofemoral joint No right knee fracture Total left knee arthroplasty. Satisfactory alignment. No loosening of the prosthetic components IMPRESSION: Moderate narrowing medial joint space right knee Total left knee arthroplasty with satisfactory alignment
== END | disposition home or self-care (01) ==
PROVIDERS: PCP Physician Assistant; Referring Provider Orthopaedic Surgery Adult Reconstructive Orthopaedic Surgery; Visit Provider Orthopaedic Surgery Adult Reconstructive Orthopaedic Surgery
DX: M25.861 Other specified joint disorders, right knee (principal); M25.562 Pain in left knee; Z96.652 Presence of left artificial knee joint
CPT/HCPCS: 73564

== ENCOUNTER 2024-10-15 14:17 | Outpatient (AMB) | payer MEDICAID, SELFPAY ==
[2024-10-15 14:38] VITALS: BP 124/78; PULSE 97; RESP 18; TEMP 36.2; O2SAT 97; BMI 26.4
--- NOTE | 2024-10-15 14:38 | PD.ORTHCLVIS ---
Vital signs 10/15/24 14:38 Height 1.5 m Height Method Stated Weight 59.477 kg Weight Measurement Method Standing Scale BMI 26.4 BP 124/78 Blood Pressure Source Automatic Cuff Blood Pressure Location Left Upper Arm Position Sitting Respiration 18 Pulse 97 Pulse Source Monitor Temp 97.2 F Temp Source Temporal Artery Scan Pulse Oximetry (%) 97 Oxygen Delivery Method Room Air Med/Allergies Allergies & Medications Allergies No Known Allergies Allergy (Verified 10/15/24 14:38) Medication Reconciliation ascorbate calcium (vitamin C) 500 mg tablet 500 mg PO QDAY 09/26/23 [History Confirmed 10/15/24] atorvastatin 10 mg tablet 10 mg PO QDAY 09/26/23 [History Confirmed 10/15/24] cetirizine 10 mg tablet 10 mg PO QDAY 09/26/23 [History Confirmed 10/15/24] levothyroxine 25 mcg capsule 25 mcg PO QDAY 09/26/23 [History Confirmed 10/15/24] vitamin B12 500 mcg-folic acid 400 mcg tablet 1 tab PO QDAY 09/26/23 [History Confirmed 10/15/24] multivitamin-ferrous fumarate-folic acid 18 mg-400 mcg tablet (Centrum) 1 tab PO QAM 01/19/24 [History Confirmed 10/15/24] vit C 250 mg-vit E 90 mg-zinc 40 mg-copper 1 fw-icjnbj-xwkiez capsule (PreserVision AREDS-2) 1 tab PO BID 01/19/24 [History Confirmed 10/15/24] sennosides 8.6 mg-docusate sodium 50 mg tablet (Senna-S) 1 tab-cap PO QDAY #30 tabs 01/22/24 [Rx Confirmed 10/15/24] Exam Exam Patient is in no acute distress and is cooperative with the examination today. Breathing is nonlabored. Patient has a normal mood and affect. Bilateral extremities were evaluated and demonstrates sensation intact to light touch. Palpable pedal pulses are present. No significant edema is present. Bilateral hips were examined. The patient has no pain with log roll of the hips. Internal rotation to 30 degrees and external rotation to 30 degrees is painless. Negative FADIR. Right knee was examined today. The right knee is in reasonable alignment. Range of motion from 0-120 degrees. Knee is stable to varus and valgus as well as AP translation with <5mm. Patient has a negative McMurrays. There is no pain with patellofemoral compression and no crepitus noted. The knee is nontender to palpation. Left knee incision is clean dry intact. Range of motion 0 to 100 degrees X-rays demonstrate a cementless left total knee replacement in good alignment and position Assessment and Plan Problem List (1) Arthritis of knee, left: Status: Acute Plan: Patient is a 58-year-old Female with left knee pain And is status post left total knee replacement. She is doing well. She is back to work and is doing well. Will see her back in approximately 1 year (2) Acute meniscal tear of knee: Status: Acute Office Procedures GNS Level of Care Nursing/Assessment Patient Status: Established Patient Nursing Assessment/Reassesment: Medication Reconciliation, Update PMH in EMR and Vital Signs Coordination of Care: Complex Care and Chronic Disease 1-5, Education Complex Pt/Fam, Consent,records obtained, informed consent, Results/Orders obtained and Staff clarify orders Established Patient Charge Established Patient Point Assignment: 95 Established Patient Point Charge: EP Level 3 (80-115) MA Intake Visit Data Collection New Patient or Established: Established Patient (seen at [facility] within 3 years) Reason for Visit:: FOLLOW UP Seen by Clinical Staff ONLY (RN/MA): No Verbal consent obtained for Telemed visit?: No 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 Supervisor 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: No PCP or OBGYN visit in last 3 months: Yes Hx Now: No Do You Feel Safe at Home: Yes Authorities Contacted: N/A Questionairres Past Medical History Past Medical History Have you ever been diagnosed with any of the following: Neurological Problems Seizures: No Cardiology Problems Hypercholesterolemia: Yes Congestive Heart Failure: No Hypertension: Yes Respiratory Problems Chronic Obstructive Pulmonary Disease (COPD): No Smoking: No Smoking Exposure: No Stomache/Intestinal Problems Hepatitis: No Ulcerative Colitis: Yes Genital/Urinary Problems Renal Disease: No Reproductive Problems Previous Pregnancies: Yes Musculoskeletal Problems Arthritis: Yes Carpal Tunnel Syndrome: Yes (bilateral) Endocrine Problems Diabetes Mellitus Type 1: No Diabetes Mellitus Type 2: No Hypothyroidism: Yes Blood Problems Clotting Problems: Yes (Platelets clump) Psychologic Problems Anxiety: Yes Other Problems Hospitalization: Yes (ulcer) Shingles: No Blood Transfusions: No Blood Transfusion Reaction: No Anesthesia Reactions: No Chicken Pox: Yes Measles: Yes Mumps: Yes Cancer: No Subjective Visit Visit for: follow up visit Immunization / Flu Flu Vaccine in the Last 12 Months: No Flu Vaccine Exclusion Criteria: No Exclusion Criteria History of Present Illness Chief complaint: Patient is doing well 6-week status post total knee replacement EN is 12 weeks out from her total knee replacement is doing well. She is 9 months out from her left total knee replacement and is very happy. She reports the right knee hurts worse Personal History Occupation: DISABLED Pain Pain level (0-10): 2 Pain duration: COMES AND GOES Pain location: inside (medial) Pain quality: aching Pain timing: increases with activity Associated signs & symptoms: none Ambulatory data Ambulatory device: cane Treatments Improvement with previous injections: No Improvement with PT: No Improvement with NSAIDS: no Review of Systems Review of Systems: All systems negative unless otherwise noted in HPI.
== END 2024-10-15 14:47 | disposition home or self-care (01) ==
LOC: HODSRG 14:17
PROVIDERS: PCP Orthopaedic Surgery Adult Reconstructive Orthopaedic Surgery; Referring Provider Orthopaedic Surgery Adult Reconstructive Orthopaedic Surgery; Supervising Provider Orthopaedic Surgery Adult Reconstructive Orthopaedic Surgery; Visit Provider Orthopaedic Surgery Adult Reconstructive Orthopaedic Surgery
DX: M17.12 Unilateral primary osteoarthritis, left knee (principal); Z96.652 Presence of left artificial knee joint; S83.209A Unspecified tear of unspecified meniscus, current injury, unspecified knee, initial encounter; X58.XXXA Exposure to other specified factors, initial encounter; I10 Essential (primary) hypertension; E78.00 Pure hypercholesterolemia, unspecified
CPT/HCPCS: 99213; G0463